=== PATIENT | female | born 1955 | race Caucasian/White ===

== ENCOUNTER → 2023-09-16 08:49 | Outpatient (REF) | payer MEDICARE, BC, SELFPAY | LOC: RCS 08:49 | PROVIDERS: ATTENDING PHYSICIAN Internal Medicine Geriatric Medicine; REFERRING PHYSICIAN Internal Medicine Cardiovascular Disease | DX: Z00.00 Encounter for general adult medical examination without abnormal findings (principal); Z12.31 Encounter for screening mammogram for malignant neoplasm of breast; E78.5 Hyperlipidemia, unspecified; E55.9 Vitamin D deficiency, unspecified; M81.0 Age-related osteoporosis without current pathological fracture; R20.2 Paresthesia of skin; L30.9 Dermatitis, unspecified; Z96.642 Presence of left artificial hip joint; M25.552 Pain in left hip; Z13.89 Encounter for screening for other disorder; Z91.018 Allergy to other foods; R07.9 Chest pain, unspecified | CPT/HCPCS: 93017; 93350 ==

== ENCOUNTER → 2024-08-26 12:09 | Outpatient (REF) | payer OTHER, SELFPAY | LOC: HWCARD 12:09 | PROVIDERS: ATTENDING PHYSICIAN Internal Medicine Geriatric Medicine | DX: R20.2 Paresthesia of skin (principal) | CPT/HCPCS: 93005 ==

== ENCOUNTER → 2024-09-06 11:10 | Outpatient (REF) | payer OTHER, SELFPAY | LOC: HWRAD 11:10 | PROVIDERS: ATTENDING PHYSICIAN Internal Medicine Geriatric Medicine | DX: Z00.00 Encounter for general adult medical examination without abnormal findings (principal); E78.5 Hyperlipidemia, unspecified; E03.9 Hypothyroidism, unspecified; R20.2 Paresthesia of skin; L30.9 Dermatitis, unspecified; Z96.642 Presence of left artificial hip joint; M25.552 Pain in left hip; Z13.89 Encounter for screening for other disorder; T78.3XXD Angioneurotic edema, subsequent encounter | CPT/HCPCS: 76770 ==

== ENCOUNTER → 2024-10-31 09:57 | Outpatient (REF) | payer OTHER, SELFPAY | LOC: RAD 09:57 | PROVIDERS: ATTENDING PHYSICIAN Nuclear Medicine Nuclear Cardiology; FAMILY PHYSICIAN Internal Medicine Geriatric Medicine | DX: R06.09 Other forms of dyspnea (principal); R07.89 Other chest pain; E78.2 Mixed hyperlipidemia; R94.31 Abnormal electrocardiogram [ECG] [EKG]; R00.1 Bradycardia, unspecified | CPT/HCPCS: 75574; Q9967 ==

== ENCOUNTER → 2024-11-02 13:54 | Outpatient (REF) | payer OTHER, SELFPAY | LOC: HWRCS 13:54 | PROVIDERS: ATTENDING PHYSICIAN Nuclear Medicine Nuclear Cardiology; FAMILY PHYSICIAN Internal Medicine Geriatric Medicine | DX: R06.09 Other forms of dyspnea (principal); R07.89 Other chest pain; E78.2 Mixed hyperlipidemia; R94.31 Abnormal electrocardiogram [ECG] [EKG] | CPT/HCPCS: 93306 ==

== ENCOUNTER 2024-11-25 15:13 | Emergency (ER) | payer OTHER, SELFPAY ==
[2024-11-25 15:19] VITALS: BP 163/88
[2024-11-25 15:51] LABS: D-Dimer 0.74 ug/mlFEU (0.00-0.50)
[2024-11-25 16:06] LABS: Hematocrit 46.8 % (37.0-47.0); Hemoglobin 15.7 g/dL (12.0-16.0); Mean Corp Hgb Conc. 33.5 g/dL (33.0-37.0); Mean Corpuscular Hgb 27.9 pg (27.0-31.0); Mean Corpuscular Volume 83.1 fL (81.0-99.0); Mean Platelet Volume 11.4 fL (7.4-10.4); Platelet Count 215 10^3/uL (130-400); Red Blood Cell Count 5.63 10^6/uL (4.20-5.40); Red Cell Dist. Width 15.1 % (11.5-14.5); White Blood Cell Count 5.3 10^3/uL (4.8-10.8)
[2024-11-25 16:07] LABS: Absolute Neutrophils -Man Diff 3.2 10^3/uL (1.4-6.5); Band Neutrophils 0 % (0-3); Lymphocytes 20 % (20-51); Monocytes 18 % (2-9); Platelets Checked Yes; Segmented Neutrophils 61 % (42-75)
[2024-11-25 16:08] LABS: ALT (SGPT) 46 U/L (0-35); AST (SGOT) 37 U/L (14-36); Albumin 4.3 g/dl (3.5-5.0); Alkaline Phosphatase 65 U/L (38-126); Blood Urea Nitrogen 23 mg/dl (7-17); Calcium 10.3 mg/dl (8.4-10.2); Carbon Dioxide 27 mmol/L (22-30); Chloride 105 mmol/L (98-107); Glucose 125 mg/dl (70-99); Normal RBC Morphology Yes; Potassium 4.1 mmol/L (3.5-5.1); Sodium 141 mmol/L (135-145); Total Bilirubin 0.8 mg/dl (0.2-1.3); Total Cells Counted 100; eGFR > 60.00
[2024-11-25 16:20] LABS: Troponin I 0.027 ng/ml
[2024-11-25 16:24] LABS: TSH < 0.02 uIU/ml (0.47-4.68)
--- NOTE | 2024-11-25 18:28 | ED.GENMED ---
History of Present Illness
General
Chief Complaint: Heart Rate Problem
Source: patient
Time Seen by Provider: 11/25/24 18:11
History of Present Illness
History of Present Illness:
69-year-old female with past medical history of hyperlipidemia and Rhonda's thyroiditis presenting to the emergency department for evaluation of chest discomfort, palpitations and exertional dyspnea that been ongoing for the last year or so,
worse over the last month, no specific etiology found despite negative coronary CT, echocardiogram and stress echo done during this time. 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
her symptoms. At time of my exam patient is symptom-free however she notes symptoms do seem to be worse when ambulating. She also notes association of increased belching during this time. No fevers or recent illnesses, no recent travel, no recent
antibiotics. No lower extremity edema, cough, pleurisy, hemoptysis. Patient denies any exogenous estrogen use. Family history noncontributory.
Past History
Past History
ED Past Medical History: Hypercholesterolemia and Hypothyroidism
ED Past Surgical History: Orthopedic, Tonsilectomy and Other
Social History
Tobacco: Non-smoker
Alcohol: None
Drug: None
Personal:
Living: with family
Review of Systems
Review of Systems
All Other Systems: ROS reviewed and negative except as documented in HPI and ROS
Phy Exam
Physical Exam
Physical Exam:
GENERAL: Alert , in no apparent distress
EYE: conjunctiva clear
NECK: Supple
ENT: o/p clr, mmm.
CARDIAC: Regular rate and rhythm
LUNGS: Clear breath sounds bilaterally, no acute respiratory distress, no wheezes/rales/rhonchi
NEUROLOGICAL: Alert and oriented
SKIN: Warm and dry, skin intact.
MUSCULOSKELETAL: well perfused.
PSYCH: Normal and appropriate interaction.
Scores
Heart Failure Risk
Heart Failure Risk Score: Not Applicable
Heart Score for Chest Pain Patients
STEMI patient?: Not applicable
Withdrawal Assessment of Alcohol
Withdrawal Assessment Completed?: Not applicable
Course
Orders/Labs/Results
Orders:
Orders
11/25/24 15:14
ECG [Electrocardiogram (*1)] Urgent
Reason for Study: Tachycardia
EKG- Treatment ONCE
11/25/24 15:31
Complete Blood Count/With Diff Urgent
Comprehensive Metabolic Panel Urgent
D-Dimer Urgent
Manual Differential Urgent
TSH Urgent
Troponin I Urgent
11/25/24 18:26
CT Chest PE Study Urgent
Comment:
Reason For Exam: SOB, elevated d-dimer
Abnormal Lab Results
11/25/24
15:31
RBC 5.63 H 10^6/uL
(4.20-5.40)
RDW 15.1 H %
(11.5-14.5)
MPV 11.4 H fL
(7.4-10.4)
Monocytes (Manual) 18 H %
(2-9)
D-Dimer 0.74 H ug/mlFEU
(0.00-0.50)
BUN 23 H mg/dl
(7-17)
Glucose 125 H mg/dl
(70-99)
Calcium 10.3 H mg/dl
(8.4-10.2)
AST 37 H U/L
(14-36)
ALT 46 H U/L
(0-35)
TSH < 0.02 L uIU/ml
(0.47-4.68)
11/25/24 15:31
11/25/24 15:31
Vital Signs
Initial and Last Documented VS:
Initial Vital Signs
Temp Pulse Resp BP Pulse Ox
98.7 F 77 16 163/88 99
11/25/24 15:19 11/25/24 15:19 11/25/24 15:19 11/25/24 15:19 11/25/24 15:19
Last Documented Vital Signs
Temp Pulse Resp BP Pulse Ox
98.2 F 76 20 141/59 99
11/25/24 18:32 11/25/24 20:11 11/25/24 20:11 11/25/24 18:32 11/25/24 20:11
MDM/Problems Addressed
Differential Diagnosis Includes:
Valvular disease, PE, minimal concern for an atypical ACS presentation, less concern for infectious etiology, CHF, anxiety
MDM/Problems Addressed:
69-year-old female presenting to the ER for evaluation of exertional dyspnea and palpitations over the last year, worse over the last month. Negative workup thus far as an outpatient. Labs were initiated on arrival which showed D-dimer of 0.74.
Patient did recently have cardiac CT/coronary score done earlier this month but no IV contrast so we will order CTA of the chest to evaluate for pulmonary embolism. Patient without risk factors for PE. Currently stable. Disposition pending.
*Radiology
Radiology exam reviewed: radiology read reviewed
*Pulse Oximetry
Patient hypoxic: no
*EKG
Heart Rate: 75
Rate: normal
Rhythm: sinus and PAC's
Ischemia: no ischemia
*G[employer] Ranger Interpretation
Rate: normal
Rhythm: sinus and PAC's
*Critical Care Note
Total Time (30-74mins, 75-104mins- exclusive of procedures): Not Applicable
Data Reviewed
Review of Other/Old Records Reveals: Records, Radiology Studies and Testing
Source: patient and records
Patient Management
Escalation/DeEscalation of care consider admission/obs:
Patient CTA negative for any acute pulmonary embolism. She is stable for discharge at this time and can follow-up with her primary care provider as an outpatient. Patient aware of return precautions.
ED Attending Note
-
Portions of this chart may have been created with voice recognition software.� Occasional wrong word or��sound alike� substitutions may have occurred due to the inherent limitations of voice recognition software.
Discharge Plan
Departure
Patient Disposition: Home (Routine Discharge)
Date of Disposition: 11/25/24
Time of Disposition: 19:50
Patient with high blood pressure during this ER visit?: Yes
Discharge Problem:
Shortness of breath
Instructions: Shortness of breath in adults - ED discharge instructions
Referrals:
Kimani Funk CRNP [Family Provider, General]
Interventions
Interventions:
*Risk Screen - Suicide Last Done: 11/25/24 15:26
*General Assessment Last Done: 11/25/24 18:37
*Neglect/Abuse Screening Last Done: 11/25/24 15:26
*ED- Fall Risk Assessment Last Done: 11/25/24 20:11
*ED COVID-19 Vaccine History Last Done: 11/25/24 19:06
*Nursing Disposition Last Done: 11/25/24 20:11
ED- Cardiac Assessment Last Done: 11/25/24 18:33
ED- Pulmonary Assessment Last Done: 11/25/24 18:33
Discharge Date and Time
Discharge Date/Time: 11/25/24 20:18
Print Language: KHMER
[2024-11-25 18:30] VITALS: BMI 26.1
[2024-11-25 18:32] VITALS: BP 141/59
== END 2024-11-25 20:18 | disposition home or self-care (01) ==
LOC: EMR 15:13
PROVIDERS: Emergency Medicine; EMERGENCY PHYSICIAN Emergency Medicine; FAMILY PHYSICIAN Nurse Practitioner Family
DX: R06.02 Shortness of breath (principal); R00.2 Palpitations; E78.00 Pure hypercholesterolemia, unspecified; E06.3 Autoimmune thyroiditis
CPT/HCPCS: 99284; 71275; 80053; 84443; 84484; 85025; 85379; 93005; Q9967

== ENCOUNTER → 2024-12-21 09:28 | Outpatient (REF) | payer OTHER, SELFPAY | LOC: HWRAD 09:28 | PROVIDERS: ATTENDING PHYSICIAN Internal Medicine Hematology & Oncology; FAMILY PHYSICIAN Internal Medicine Geriatric Medicine | DX: D45 Polycythemia vera (principal); D50.0 Iron deficiency anemia secondary to blood loss (chronic); D51.0 Vitamin B12 deficiency anemia due to intrinsic factor deficiency | CPT/HCPCS: 76536 ==